=== PATIENT | male | born 1980 | race American Indian/Alaskan Native ===

== ENCOUNTER 2019-03-18 19:28 | Emergency (ER) | payer OTHER ==
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
--- NOTE | 2019-03-18 21:03 | XRay Report ---
PROCEDURE: XR HAND 3+V RT TECHNIQUE: Right hand radiographs, PA, lateral, and oblique views. HISTORY: pain/swellin COMPARISONS: None . FINDINGS: There are 2 small irregular radiopaque foreign bodies in the posterior soft tissues at the level of s econd metacarpal head measuring 3 and 1.5 mm. An acute fracture is not identified. Joint alignment is within normal limits. There is evidence of clubbing of the distal phalanges. Narrowing of radiocarpa l joint is noted with osteophyte formation. Scaphoid bone appears to be in 2 segments with well-defin ed margins. IMPRESSION: Small radiopaque foreign bodies at the level of second metacarpal head. Scaphoid bone appears in two segments which may be secondary to an old fracture. Additional views of the wrist including scaphoid view are recommended. Clubbing of distal phalanges This document is electronically signed by Steve Gregorio MD., Mar 18 2019 09:01:12 PM ET
[2019-03-19] MEDS ORDERED: NORCO 5/325 PO ONE (00:56)
--- NOTE | 2019-03-19 01:33 | XRay Report ---
PROCEDURE: RIGHT WRIST, 3 VIEWS TECHNIQUE: RIGHT wrist radiographs, including AP, lateral, and oblique views. CPT 07672 HISTORY: Right wrist pain COMPARISONS: None . FINDINGS: Fracture (s) and/or Dislocation(s): None . Alignment: Normal . Joint space(s): Normal . Soft tissues: Normal . Bone mineralization: Normal . Foreign bodies: None . There is a lucent lesion in the fifth metacarpal bone measuring 8 x 6 mm which could be an enchondrom a. IMPRESSION: There are no fractures or malalignments. . This document is electronically signed by Moe Fuller MD., Mar 19 2019 01:31:32 AM ET
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
[2019-03-19 03:33] VITALS: BP 150/89
== END 2019-03-19 03:27 | disposition home or self-care (01) ==
LOC: ED 19:28
DX: S63.91XA Sprain of unspecified part of right wrist and hand, initial encounter (principal); J45.909 Unspecified asthma, uncomplicated; F17.200 Nicotine dependence, unspecified, uncomplicated; W22.8XXA Striking against or struck by other objects, initial encounter; Y93.89 Activity, other specified; Y92.019 Unspecified place in single-family (private) house as the place of occurrence of the external cause; Y99.8 Other external cause status